=== PATIENT | male | born 1960 | race Caucasian/White ===

== ENCOUNTER 2025-04-07 14:42 | Emergency (ER) | payer OTHER ==
[2025-04-07 14:48] VITALS: PULSE 79; TEMP 98.8; BMI 27.5
[2025-04-07 15:37] VITALS: BP 139/74; RESP 16
== END 2025-04-07 15:45 | disposition home or self-care (01) ==
LOC: FER 14:42
DX: R10.9 Unspecified abdominal pain (principal)
CPT/HCPCS: 81003; 99283-25